=== PATIENT | male | born 1975 | race Caucasian/White ===

== ENCOUNTER 2017-07-22 23:31 | Emergency (ER) | payer OTHER ==
[~2017-07-22] VITALS: Ht 167.6 cm; Wt 90.0 kg
[2017-07-22 23:41] VITALS: Ht 167.6 cm; Wt 90.0 kg
[2017-07-23] MEDS ORDERED: FLUORESCEIN STRIP RIGHT EYE ONE (02:30)
[2017-07-23] MEDS ORDERED: TETRACAINE 0.5% 4 ML OPH RIGHT EYE ONE (02:30)
[2017-07-23] MEDS ORDERED: OPHTHALMIC IRRIG SOLUTION 120 ML RIGHT EYE ONE (03:00)
[2017-07-23] MEDS ORDERED: VIGA RIGHT EYE (03:12)
[2017-07-23] MEDS ORDERED: NAPH15DR22 RIGHT EYE (03:12)
--- NOTE | 2017-07-23 03:29 | ERD ---
ER Documentation Chief Complaint Date/Time DATE: 07/23/17 TIME: 03:27 Chief Complaint Pt reports r eye redness since this morning HPI 42-year-old male presents here to emergency department for complaints of right eye redness when he woke up this morning. Patient has irritation of the right eye. Patient denies any foreign body sensation. Patient denies any vision changes. Patient denies any trauma in affected area. Patient denies any pain. ROS All systems reviewed and are negative except as per history of present illness. Medications Home Meds Active Scripts Moxifloxacin Hcl* (Vigamox*) 0.5% - 3 Ml Opht, 1 DROP RIGHT EYE TID, #1 EA Prov:ANT QUINONES [employer] 07/23/17 Naphazoline-Pheniramine* (Visine-A*) 15 Ml Drops, 2 DROP RIGHT EYE Q4H Y for RED EYES, #1 BOT Prov:ANT QUINONES [employer] 07/23/17 Allergies Allergies: Coded Allergies: No Known Allergy (Unverified , 07/22/17) PMhx/Soc Medical and Surgical Hx: pt denies Medical Hx, pt denies Surgical Hx Hx Alcohol Use: No Hx Substance Use: No Hx Tobacco Use: No Smoking Status: Never smoker FmHx Family History: No coronary disease, No diabetes, No other Physical Exam Vitals Vital Signs Date Time Temp Pulse Resp B/P Pulse Ox O2 Delivery O2 Flow Rate FiO2 07/22/17 23:41 99.2 71 16 133/85 97 Physical Exam GENERAL: The patient is well developed and appropriate for usual state of health, in no apparent distress. HEENT: Atraumatic. Lateral eyes are PERRLA EOMs intact. Right eye conjunctiva noted to be erythematous, no purulent discharge. Left eye conjunctiva normal noted. Ears: Normal tympanic membrane, no erythema or bulging. No ear canal swelling. No ear discharge. Nose: normal nasal turbinates, no erythema or swelling. Normal nasal discharge. Throat: oropharynx clear. No tonsillar swelling or tonsillar exudates. No lymphadenopathy. CHEST: Clear to auscultation bilaterally. There are no rales, wheezes or rhonchi. HEART: Regular rate and rhythm. No murmurs, clicks, rubs or gallops. No S3 or S4. ABDOMEN: Soft, nontender and nondistended. Good bowel sounds. No rebound or guarding. No gross peritonitis. No gross organomegaly or masses. No Solis sign or McBurney point tenderness. BACK: No midline or flank tenderness. EXTREMITIES: Equal pulses bilaterally. There is no peripheral clubbing, cyanosis or edema. No focal swelling or erythema. Full range of motion. Grossly neurovascularly intact. NEURO: Alert and oriented. Cranial nerves 2-12 intact. Motor strength in all 4 extremities with 5/5 strength. Sensation grossly intact. Normal speech and gait. SKIN: There is no apparent rash or petechia. The skin is warm and dry. HEMATOLOGIC AND LYMPHATIC: There is no evidence of excessive bruising or lymphedema. No gross cervical, axillary, or inguinal lymphadenopathy. Results 24 hrs Current Medications Medications (Trade) Dose Ordered Sig/Livia Route PRN Reason Start Time Stop Time Status Last Admin Dose Admin Fluorescein Sodium (Ovqzf-S-Meozy) 1 strip ONCE ONCE RIGHT EYE 07/23/17 02:30 07/23/17 02:31 DC Tetracaine HCl (Tetracaine 0.5% Steri-Unit Jyotsna) 1 drop ONCE ONCE RIGHT EYE 07/23/17 02:30 07/23/17 02:31 DC Irrigating Solution (Eye Wash) 1 applic ONCE ONCE RIGHT EYE 07/23/17 03:00 07/23/17 03:01 DC Procedure Note: After obtaining informed consent, the _right_ eye was stained using fluorescein dye. After staining the eye, A Wood's lamp was used to evaluate the eye. There is no foreign body noted in the eye. No corneal abrasions noted. Patient tolerated procedure well. Eye wash was done afterwards , tolerated procedure well. Procedures/MDM Medical decision making: Patient symptoms was likely is consistent with acute conjunctivitis, possible bacterial. Low suspicion for any acute eye emergencies at this time. Patient does not have any vision changes. No foreign body noted in the eye, no corneal abrasion. No symptoms of any keratitis. Prescription was given for Vigamox, Naphcon, was advised to follow- up with eye doctor within 2-3 days for further evaluation of symptoms. Patient is advised to return to emergency department for any worsening symptoms. Disposition: Home. Stable. Departure Diagnosis: Primary Impression: Conjunctivitis Conjunctivitis type: unspecified Laterality: right Qualified Code: H10.9 - Conjunctivitis of right eye, unspecified conjunctivitis type Condition: Stable Patient Instructions: Conjunctivitis Caused by Infection ANT QUINONES NP Jul 23, 2017 03:29
== END 2017-07-23 03:32 | disposition home or self-care (01) ==
LOC: FTE 23:31
DX: H10.9 Unspecified conjunctivitis (principal)
CPT/HCPCS: Z7502; Z7610; 99283